=== PATIENT | female | born 1960 | race Caucasian/White ===

== ENCOUNTER 2017-10-11 16:48 | Emergency (ER) | payer MEDICARE, OTHER ==
[~2017-10-11] VITALS: Ht 162.6 cm; Wt 108.9 kg
[2017-10-11 16:55] VITALS: BP 121/80
--- NOTE | 2017-10-11 17:03 | PHYS DOC ---
Adult General Chief Complaint Chief Complaint: LACERATION/AVULSION [facility] HPI Patient is a 57 year old female presents to the emergency department stating that she cut her right index finger with a mandolin today. She presents here to the emergency department tumefaction cannot get the bleeding to stop. Patient states her tetanus immunization was on 09/10/12. Patient does have good sensation noted to the fingertip area. Bleeding at this time is not currently controlled however bandages placed over the site. Patient is right hand dominant. Review of Systems Review of Systems Constitutional: Denies fever or chills [] Eyes: Denies change in visual acuity, redness, or eye pain [] HENT: Denies nasal congestion or sore throat [] Respiratory: Denies cough or shortness of breath [] Cardiovascular: No additional information not addressed in HPI [] GI: Denies abdominal pain, nausea, vomiting, bloody stools or diarrhea [] : Denies dysuria or hematuria [] Musculoskeletal: Denies back pain or joint pain [] Integument: Denies rash or skin lesions. Laceration to the tip of the right index finger Neurologic: Denies headache, focal weakness or sensory changes [] Endocrine: Denies polyuria or polydipsia [] All other systems were reviewed and found to be within normal limits, except as documented in this note. Current Medications Current Medications Current Medications Medications (Trade) Dose Ordered Sig/Rachelle Start Time Stop Time Status Last Admin Dose Admin Diphtheria/ Tetanus/Acell Pertussis (Boostrix) 0.5 ml ONCE ONCE 10/11/17 17:30 10/11/17 17:31 Gelatin (Gelfoam Size 12-7mm) 1 each 1X ONCE 10/11/17 17:30 10/11/17 17:31 Allergies Allergies Allergies Coded Allergies Type Severity Reaction Last Updated Verified Sulfa (Sulfonamide Antibiotics) Allergy Unknown 10/11/17 Yes Physical Exam Physical Exam Constitutional: Well developed, well nourished, no acute distress, non-toxic appearance. [] HENT: Normocephalic, atraumatic, bilateral external ears normal, oropharynx moist, no oral exudates, nose normal. [] Eyes: PERRLA, EOMI, conjunctiva normal, no discharge. [] Neck: Normal range of motion, no tenderness, supple, no stridor. [] Cardiovascular:Heart rate regular rhythm Lungs & Thorax: No respiratory distress noted Skin: Warm, dry, no erythema, no rash. Patient was noted to have an avulsion of the tip of the right index finger. Patient does have an ice pack and pressure applied to the area due to bleeding. She has full range of motion of the finger. No nail involvement noted. Extremities: No tenderness, no cyanosis, no clubbing, ROM intact, no edema. [] Neurologic: Alert and oriented X 3, normal motor function, normal sensory function, no focal deficits noted. [] Psychologic: Affect normal, judgement normal, mood normal. [] EKG EKG [] Radiology/Procedures Radiology/Procedures [] Course & Med Decision Making Course & Med Decision Making Pertinent Labs and Imaging studies reviewed. (See chart for details) Site will be cleaned with saline and Hibiclens. Patient will be provided with a tetanus immunization here in the emergency department. Gelfoam will be placed on the finger tip to help with bleeding. Patient was recommended to keep this on for the next 24 hours. Recommended that she soak the Gelfoam off to prevent bleeding from occurring. Patient was provided with signs and symptoms of infection. Recommended keeping the area clean and dry applying antibiotic ointment after the 24 hours. I've spoken with the patient and/or caregivers. I've explained the patient's condition, diagnosis and treatment plan based on information available to me at this time. I've answered the patient's and/or caregivers questions and addressed any concerns. The patient and/or caregivers have a good understanding the patient's diagnosis, condition and treatment plan as can be expected at this point. Vital signs have been stabilized. The patient's condition is stable for discharge from the emergency department. The patient will pursue further outpatient evaluation with her primary care provider or other designated consulting physician as outlined in the discharge instructions. Patient and/or caregivers are agreeable to this plan of care and follow-up instructions have been explained in detail. The patient and/or caregivers have received these instructions in written format and expressed understanding of these discharge instructions. The patient and her caregivers are aware that if any significant change in condition or worsening of symptoms should prompt him to immediately return to this of the closest emergency department. If an emergent department is not readily available I would encourage him to call 911. Derik Disclaimer Derik Disclaimer This electronic medical record was generated, in whole or in part, using a voice recognition dictation system. Departure Departure Impression: Primary Impression: Avulsion, finger tip Disposition: 01 HOME, SELF-CARE Condition: STABLE Referrals: ISIDRO HELTON Jr, MD (PCP) Patient Instructions: Finger Avulsion Additional Instructions: Activity as tolerated Keep the finger clean and dry for the next 24 hours Tomorrow night soak the finger in water to remove the gel foam, Do NOT pull the gel foam off as this may cause bleeding Clean with soap and water and apply antibiotic ointment to the site Then clean the finger twice a day with soap and water Watch for signs and symptoms of infection: redness, warmth, tenderness or any green/yellow drainage that may occur. If this should happen followup with your primary care provider immediately Followup with your primary care provider in 1 week Return to emergency department as needed for signs and symptoms that become worse. Problem Qualifiers Primary Impression: Avulsion, finger tip Encounter type: initial encounter Qualified Codes: S61.209A - Unspecified open wound of unspecified finger without damage to nail, initial encounter ABRAN SANABRIA APRN Oct 11, 2017 17:03
[2017-10-11] MEDS ORDERED: GELATIN SPONGE SIZE 12-7MM SPONGE. TP ONE (17:30)
[2017-10-11] MEDS ORDERED: DIPHTH,PERTUSS(ACELL),TET TOX 0.5 ML DISP.SYRIN. VAX IM ONE (17:30)
== END 2017-10-11 17:45 | disposition home or self-care (01) ==
LOC: ER 16:48
DX: S61.210A Laceration without foreign body of right index finger without damage to nail, initial encounter (principal); Z88.2 Allergy status to sulfonamides; W26.8XXA Contact with other sharp object(s), not elsewhere classified, initial encounter; Y93.89 Activity, other specified; Y99.8 Other external cause status; Y92.89 Other specified places as the place of occurrence of the external cause
CPT/HCPCS: 90471; 90715; 99284-25

== ENCOUNTER → 2018-05-18 | Outpatient (CLI) | payer OTHER, MEDICARE | END | disposition home or self-care (01) | LOC: KCIC CT 08:13 | DX: N20.0 Calculus of kidney (principal); K42.9 Umbilical hernia without obstruction or gangrene; Z98.890 Other specified postprocedural states | CPT/HCPCS: 74176 ==

== ENCOUNTER → 2018-06-01 | Outpatient (CLI) | payer OTHER, MEDICARE | END | disposition home or self-care (01) | LOC: KCIC 10:27 | DX: M25.551 Pain in right hip (principal) | CPT/HCPCS: 73502 ==

== ENCOUNTER → 2019-02-07 | Outpatient (CLI) | payer OTHER, MEDICARE ==
[~2019-02-07] MED LIST: ACET500T68 PO; BACL10TA PO; CALC1TAB79 PO; CHOL10003 PO; CLON0.5T11 PO; CYAN250012 PO; DOCU-150 PO; DULO60CA6 PO; ESTR1TAB15 PO; GABA600T7 PO; HYDR-2145 PO; HYDR-2763 PO; IBUP-1027 PO; LOSA-73 PO; NADO40TA PO; OXYB5TAB7 PO; PREN-2 PO; QUET100T4 PO; [UNRECOGNIZED DRUG - CODE] SQ
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
== END | disposition home or self-care (01) ==
LOC: PNCL 09:55
PROVIDERS: ATTEND Anesthesiology
DX: M79.601 Pain in right arm (principal); M54.2 Cervicalgia; I10 Essential (primary) hypertension; M19.90 Unspecified osteoarthritis, unspecified site; Z88.2 Allergy status to sulfonamides; Z87.891 Personal history of nicotine dependence
CPT/HCPCS: G0463

== ENCOUNTER → 2019-02-21 | Outpatient (CLI) | payer OTHER, MEDICARE ==
[~2019-02-21] MED LIST changes: +IOHEXOL 180 MG/ML 10 ML VIAL. ONE; +methylPREDNISolone ACETATE 40 MG/ML VIAL. ONE; +methylPREDNISolone ACETATE 80 MG/ML VIAL. ONE
--- NOTE | 2019-02-21 22:00 | PAIN ---
DATE OF SERVICE: 02/21/2019 DIAGNOSES: 1. Cervical radiculopathy with cervical degenerative disk disease. 2. Post-cervical laminectomy syndrome. HISTORY OF PRESENT ILLNESS: The patient is a 58-year-old female who returns for followup status post initial evaluation and preauthorization for a cervical epidural steroid injection. She still has significant pain in the base of the neck and shoulders, upper extremities, right greater than left. The patient reports still significant pain even after Medrol Dosepak, which did help while she was taking it for about the first week. The patient reports still has pain in the base of the neck and shoulders, again in the right upper arm into the anterior aspect of the biceps and the anterior forearm as well as posterior forearm with some numbness and tingling in the right hand. The patient reports no new motor or sensory deficits, no new changes, still difficulty sleeping when she lies on the right side, using repetitive motions, reaching over her head with her right arm as well. The patient reports the pain is burning and stabbing, sharp, dull, shooting, radiating, becoming more constant, more severe as time goes on in the neck and right arm. The patient reports it is 10 on a scale of 10 at its worst, 7 on average, 4 at its least and is 7 today. PHYSICAL EXAMINATION: VITAL SIGNS: The patient's blood pressure is 144/99, pulse 59, respirations 16, temperature 97.7 degrees Fahrenheit, weight is 260 pounds. GENERAL: The patient is awake, alert, oriented, appropriate, very pleasant demeanor. HEENT: Shows normocephalic, atraumatic. Extraocular movements are intact and symmetrical. Oral cavity: Mucous membranes moist and pink. Dentition is intact. NECK: Shows anterior throat supple without palpable lymphadenopathy noted. Swallow reflex symmetrical. CHEST: Shows normal on inspection. Breath sounds clear to auscultation bilaterally. HEART: Shows S1, S2 clear. No murmurs auscultated. ABDOMEN: Soft, nontender, nondistended. No palpable organomegaly is noted. No rebound or guarding demonstrated. BACK: Shows spine grossly in the midline, normal-appearing cervical lordotic curvature and thoracic kyphotic curvature. Cervical paraspinous muscle shows symmetrical on inspection, with palpation shows some moderate tenderness diffusely in the inferior aspect compared to the posterior cervical paraspinous musculature without radiation. No trigger points. No difficulty with rotational motion, good extension, flexion and good right and left lateral rotation greater than 45 degrees without significant increase in pain. EXTREMITIES: The patient's upper extremities show deep tendon reflexes 2+ in the biceps and triceps tendons. Motor exam is 4 on a scale of 5 on the right with receiver bulk system strength and 5/5 on the left. Peripheral pulses are 2+ in radial distribution. No peripheral edema is noted bilaterally. Options were discussed with the patient. The patient's old chart was reviewed as her current medication regimen updated. Current review of systems updated today as well. We will proceed with a cervical epidural steroid injection with risks discussed today including, but not limited to bleeding, infection, possibility of epidural hematoma, subsequent neurological compromise, dural puncture, headaches, spinal cord and/or nerve damage, side effects of steroid medication and poor results regarding pain control. The patient understands and wished to proceed. The patient to return to clinic in approximately 2 weeks for followup, was counseled on return appointment, activity level and side effects to be aware of. The patient also continues with medication management with hydrocodone, ibuprofen, and baclofen and she is obtaining these from her primary care physician and feels this is appropriate and necessary for her to have at this time. She will continue on this medication regimen as prescribed with her primary physician. DIAGNOSES: Cervical radiculopathy with cervical degenerative disk disease and cervical post-laminectomy syndrome. PROCEDURE: Cervical epidural steroid injection, translaminar approach C6-C7 level using C-arm fluoroscopic guidance under sterile prep and drape using local anesthetic. MEDICATION INJECTED: A total of 120 mg Depo-Medrol plus 5 mL of preservative-free normal saline and 2 mL of Omnipaque for contrast. CONDITION AT DISCHARGE: Stable. The patient tolerated the procedure well, had no complications. DAMION DOE MD DR: ISIDRO/abdiel JOB#: [id number] / [id number] CECILIA Silva MD, Hanson MD
== END | disposition home or self-care (01) ==
LOC: PNCL 14:33
PROVIDERS: ATTEND Anesthesiology
DX: M50.123 Cervical disc disorder at C6-C7 level with radiculopathy (principal); M96.1 Postlaminectomy syndrome, not elsewhere classified; Z88.2 Allergy status to sulfonamides
CPT/HCPCS: 62321; J1030; J1040; Q9965

== ENCOUNTER → 2019-03-18 | Outpatient (CLI) | payer OTHER, MEDICARE ==
[~2019-03-18] MED LIST changes: -IOHEXOL 180 MG/ML 10 ML VIAL. ONE; -methylPREDNISolone ACETATE 40 MG/ML VIAL. ONE; -methylPREDNISolone ACETATE 80 MG/ML VIAL. ONE
--- NOTE | 2019-03-19 03:44 | PAIN ---
DATE OF SERVICE: 03/18/2019 PROGRESS NOTE FOR PAIN CLINIC: DIAGNOSES: Cervical radiculopathy with cervical degenerative disk disease and post-cervical laminectomy syndrome. HISTORY OF PRESENT ILLNESS: The patient is a 58-year-old female who returns for followup status post cervical epidural steroid injection x 1. The patient reports significant reduction in pain for the first 2 weeks about 75%, but now is about 50% overall. The pain is returning fairly significantly. The patient relates that she was in a car yesterday, looked over her right shoulder to check a blind spot and had significant pain shooting into the right shoulder and arm as it was previously, but only for a quick time, but the pain is still fairly noticeable even this morning. The patient reports no new motor or sensory deficits, no new changes, but still significant pain in the right upper extremity, right neck, shooting into the right anterior deltoid, anterior biceps as well. The patient reports it is sharp, burning, stabbing, going to the right arm with occasional tingling sensation, but no weakness. She has not been dropping any items nor had any increased weakness of the right hand. The patient reports her neck overall feels better and she is pleased with her progress, but again the pain returning fairly significantly with a radiating quality into the right arm and shoulder as well as previously. The patient reports it is awakening her from sleep again over the last few days. Does not cause any loss of function noted again, but still becoming more noticeable as time goes on. The patient reports no new motor or sensory deficit. Reports the pain is sharp, tingling, burning and stabbing, rates it 8 on a scale of 10 at its worst, 7 on average, 6 at its least and is a 7 today. PHYSICAL EXAMINATION: VITAL SIGNS: The patient's blood pressure 129/85, pulse 62, respirations 16, temperature is 98.9 degrees Fahrenheit, weight is 269 pounds. GENERAL: The patient is awake, alert, oriented, appropriate, very pleasant demeanor. HEENT: Shows normocephalic, atraumatic. Extraocular movements are intact and symmetrical. Oral cavity: Mucous membranes moist and pink. Dentition is intact. NECK: Shows anterior throat supple without palpable lymphadenopathy noted. Swallow reflex symmetrical. CHEST: Shows normal with inspection. Breath sounds clear to auscultation bilaterally. HEART: Shows S1, S2 clear. No murmurs auscultated. ABDOMEN: Soft, nontender, nondistended. No palpable organomegaly is noted. No rebound or guarding demonstrated. BACK: Shows spine grossly in the midline. Normal appearing thoracic kyphosis and lumbar lordotic curvature. Cervical paraspinous muscle shows symmetrical on inspection, with palpation shows some moderate tenderness, more on the right than the left inferior aspect of the cervical paraspinous muscles and into the superior medial trapezius as well, but without radiation, without trigger points. The patient has good rotational motion, slightly guarded and slow with movement to rotation past 45 degrees right and left as well as full extension, full forward flexion without increase in pain. EXTREMITIES: Upper extremities show deep tendon reflexes 2+ in the biceps, triceps tendons. Motor exam is approximately 4 on a scale of 5 with right wire drawing die maker strength, bicep and tricep flexion, 5/5 on the left. Peripheral pulses are 2+ radial distribution. No peripheral edema is noted bilaterally. Options were discussed with the patient. The patient's old chart was reviewed as her current medication regimen updated. Current review of systems updated today as well. We will preauthorize the patient for a second cervical epidural steroid injections, she did very well initially the first few weeks after the first injection, pain returning now to about 50% level in the base of the neck and right upper extremity is noted in a radicular fashion, mostly at C5-C6 dermatomal distribution. The patient would like to proceed with a second injection. We will plan a translaminar cervical epidural steroid injection at C5-C6 level. The patient will continue doing stretching and strengthening exercise in the meantime and will follow up in approximately 2 weeks and plan on second cervical epidural steroid injection at that time. DAMION DOE MD DR: ISIDRO/abdiel JOB#: [id number] / [id number]
== END | disposition home or self-care (01) ==
LOC: PNCL 09:00
PROVIDERS: ATTEND Anesthesiology
DX: M50.10 Cervical disc disorder with radiculopathy, unspecified cervical region (principal); M96.1 Postlaminectomy syndrome, not elsewhere classified
CPT/HCPCS: G0463

== ENCOUNTER → 2019-03-31 | Outpatient (CLI) | payer OTHER, MEDICARE ==
[~2019-03-31] MED LIST changes: +IOHEXOL 180 MG/ML 10 ML VIAL. ONE; +methylPREDNISolone ACETATE 40 MG/ML VIAL. ONE; +methylPREDNISolone ACETATE 80 MG/ML VIAL. ONE
--- NOTE | 2019-04-01 00:17 | PAIN ---
DATE OF SERVICE: 03/31/2019 DIAGNOSES: Cervical radiculopathy with cervical degenerative disk disease and post-cervical laminectomy syndrome. HISTORY OF PRESENT ILLNESS: The patient is a 59-year-old female who returns for followup status post cervical epidural steroid injection x 1 with about 75% improvement. The patient reports the pain is returning now in the base of the neck and bilateral upper extremities, slightly more on the right than the left, but present bilaterally. The patient reports it is a 10 on a scale of 10 at its worst, 8 on average, is a 6 at its least and is a 6 today. The patient reports it is stabbing, aching, sharp, shooting, radiating, severe at times, worse with activity, reading but holding her head upward down, better with sitting or lying down, better with sleeping, does not awaken her from sleep. The patient reports no new motor or sensory deficits. No new changes. PHYSICAL EXAMINATION: VITAL SIGNS: The patient's blood pressure is 135/40, pulse is 52, respirations 18, temperature 98.1 degrees Fahrenheit, height is 5 feet 5 inches, weight is 269 pounds. GENERAL: The patient is awake, alert, oriented, appropriate, very pleasant demeanor. HEENT: Shows normocephalic, atraumatic. Extraocular movements are intact and symmetrical. Oral cavity: Mucous membranes moist and pink. Dentition is intact. NECK: Shows anterior throat supple without palpable lymphadenopathy noted. Swallow reflex is symmetrical. CHEST: Shows normal on inspection. Breath sounds are clear to auscultation bilaterally. HEART: Shows S1, S2 clear. No murmurs auscultated. ABDOMEN: Soft, nontender, nondistended. No palpable organomegaly is noted. No rebound or guarding demonstrated. BACK: Shows spine grossly in the midline. Cervical lordotic curvature is maintained. Cervical paraspinous muscle shows symmetrical on inspection. On palpation shows some moderate tenderness diffusely bilaterally, but only diffusely without significant radiation. The patient has good rotational motion of cervical spine, both laterally with some minor tenderness with extension, but not with forward flexion, right or left lateral rotations performed past 45 degrees, closer to 90 degrees without significant pain reported. EXTREMITIES: The patient's upper extremities show deep tendon reflexes at 2+ in the biceps and triceps tendons. Motor exam is approximately 4 on a scale of 5 with right malware analyst strength and 5 out of 5 on the left. Peripheral pulses are 2+ radial distribution. No peripheral edema is noted bilaterally. Options were discussed with the patient. The patient's old chart was reviewed as was her current medication regimen updated. Current review of systems is updated today as well and we will proceed with a second in the series of cervical epidural steroid injection today with fluoroscopic guidance. Risks were again discussed including, but not limited to bleeding, infection, possibility of epidural hematoma, subsequent neurologic compromise, dural puncture, headaches, spinal cord and/or nerve damage, side effects of steroid medication and poor results regarding pain control. The patient understands and wished to proceed. The patient will return to the clinic in approximately 2 weeks for followup, was counseled on return appointment, activity level and side effects to be aware of. DIAGNOSES: Cervical radiculopathy with cervical degenerative disk disease and post-cervical laminectomy syndrome. PROCEDURE: Cervical epidural steroid injection, translaminar approach, C6-C7 level using C-arm fluoroscopic guidance under sterile prep and drape using local anesthetic. MEDICATION INJECTED: A total of 120 mg Depo-Medrol plus 5 mL of preservative-free normal saline and 2 mL of Isovue for contrast. CONDITION AT DISCHARGE: Stable. The patient tolerated the procedure well, had no complications. DAMION DOE MD DR: ISIDRO/abdiel JOB#: [id number] / [id number]
== END | disposition home or self-care (01) ==
LOC: PNCL 08:21
PROVIDERS: ATTEND Anesthesiology
DX: M50.123 Cervical disc disorder at C6-C7 level with radiculopathy (principal); M96.1 Postlaminectomy syndrome, not elsewhere classified; Z88.2 Allergy status to sulfonamides
CPT/HCPCS: 62321; J1030; J1040; Q9965

== ENCOUNTER → 2019-04-26 | Outpatient (CLI) | payer OTHER, MEDICARE ==
[~2019-04-26] MED LIST changes: -IOHEXOL 180 MG/ML 10 ML VIAL. ONE; -methylPREDNISolone ACETATE 40 MG/ML VIAL. ONE; -methylPREDNISolone ACETATE 80 MG/ML VIAL. ONE
--- NOTE | 2019-04-26 17:32 | KCIC ---
BILATERAL SCREENING MAMMOGRAM, 3-D History: Routine screening. Comparison: Bilateral mammogram December 11, 2015. Technique: MLO and CC digital tomosynthesis (3D) images obtained. Radiologist reviewed these images on dedicated workstation. Findings: Breast Tissue Density B : There are scattered areas of fibroglandular density. A few benign calcifications are noted bilaterally. Bilateral glandular nodularity is redemonstrated. There are no dominant masses, suspicious microcalcifications, or architectural distortion. IMPRESSION: No mammographic evidence of malignancy. Recommend routine screening. BI-RADS category 2: Benign findings. The images were reviewed with computer-aided detection. Patient information is entered into reminder system with a target due date for the next screening mammogram. Mammography is the most sensitive method for finding small breast cancers, but it does not detect them all and is not a substitute for careful clinical examination. A negative mammogram does not negate a clinically suspicious finding and should not result in delay in biopsying a clinically suspicious abnormality. "Our facility is accredited by the [employer] Mammography Program." Electronically signed by: Sarthak Nation MD (04/26/2019 5:29 PM) [facility]
== END | disposition home or self-care (01) ==
LOC: KCIC MAMMO 10:25
PROVIDERS: ATTEND Family Medicine
DX: Z12.31 Encounter for screening mammogram for malignant neoplasm of breast (principal); N64.89 Other specified disorders of breast
CPT/HCPCS: 77063; 77067

== ENCOUNTER → 2019-06-03 | Outpatient (CLI) | payer OTHER, MEDICARE | END | disposition home or self-care (01) | LOC: SURGPAT 12:22 | PROVIDERS: ATTEND Neurological Surgery | DX: Z01.818 Encounter for other preprocedural examination (principal); M48.02 Spinal stenosis, cervical region; M50.122 Cervical disc disorder at C5-C6 level with radiculopathy; Z88.2 Allergy status to sulfonamides | CPT/HCPCS: 36415; 87641 ==

== ENCOUNTER 2019-06-10 07:19 | Observation (INO) | payer OTHER, MEDICARE ==
--- NOTE | 2019-06-09 16:07 | PREOP HP ---
DATE OF SERVICE: 06/10/2019 Tripp Wilcox dictating for Dr. Kunal Ivey. DATE OF SURGERY: 06/10/2019. HISTORY OF PRESENT ILLNESS: The patient is a pleasant 59-year-old who is having difficulty with neck and bilateral shoulder pain. She describes the pain as sharp, stabbing pain. She says her left shoulder is more sharply painful, but that the right shoulder feels weak and she has pain in the right scapular area. The problem started 4-6 months ago spontaneously. She rates her pain as a 7/10. Looking down increases her pain. Sitting straight helps her. She takes Lortab for pain. She had physical therapy and said that made the pain worse. Epidural steroid injections were done without significant long-term benefit. In 2012, she underwent ACDF and did well. PAST MEDICAL HISTORY: Arthritis. Artificial joint, blood clots, blood transfusion. Headaches and migraines, head or neck injury, kidney stones, tonsillitis, fibromyalgia ____. PAST SURGICAL HISTORY: Right knee replacement in 2007, left knee replacement in 2009, cholecystectomy in 2006, ACDF 2012. FAMILY HISTORY: Aneurysm, cancer, diabetes, heart problems and disease, hypertension. SOCIAL HISTORY: Quit smoking more than 10 years ago. Minimal alcohol consumption. ALLERGIES: SULFA. CURRENT MEDICATIONS: Baclofen, clonazepam. Lortab, oxybutynin chloride. Corgard, gabapentin, calcium, vitamin D, laxative, vitamin, Tylenol, Quetiapine fumarate, duloxetine, losartan. REVIEW OF SYSTEMS: A 12-point review of systems was obtained and is noncontributory except that mentioned above. PHYSICAL EXAMINATION: NEUROSURGERY EXAMINATION: GENERAL APPEARANCE: Alert, pleasant, no distress. HEAD: Normocephalic and atraumatic. SKIN: Warm and dry. NECK AND THYROID: [id number]-vc-rshuzscn tenderness with palpation of posterior cervical region, tenderness along the right superior medial scapular region, well-healed incision. MUSCULOSKELETAL: Cervical paraspinal muscle bulk is normal, cervical range of motion is restricted, normal range of motion of the upper extremities bilaterally. EXTREMITIES: No clubbing, cyanosis or edema. NEUROLOGIC: Alert and oriented x 3, normal recent and remote memory, strength 5/5 in bilateral upper and lower extremities, except for 4+/5 right triceps strength. Sensory was intact to light touch in the upper and lower extremities. Reflexes were present and symmetric in the upper and lower extremities bilaterally, normal gait. IMAGING: I reviewed her cervical MRI scan from 01/17/2019. On that study, the principal abnormality was at C5-C6 with a right paracentral disk osteophyte complex with marked narrowing of the right neural foramen along with the element of stenosis in the right side of the spinal canal. ASSESSMENT: 1. Cervical disk disorder at C5-C6 level with radiculopathy. 2. Cervicalgia. 3. Spinal stenosis, cervical region. PLAN: The patient has a cervical radiculopathy. She has failed to improve with conservative measures. She has severe right-sided neural foraminal narrowing at C5-C6. She is going to require surgery at that level and that she has failed extensive conservative measures. This will require removal of hardware at C5 related to a previous ACDF and diskectomy and fusion at C5-C6 with anterior plating. I discussed this with her in detail. She would like to go ahead and make the arrangements. I carefully outlined the risks of the surgery and the sequelae of injury to soft tissue structures of the neck. We also spoke about expected postoperative course. She has excellent understanding and would like to proceed. We will make the arrangements. KUNAL IVEY MD DR: NIKA/abdiel JOB#: [id number] / [id number]
[~2019-06-10] VITALS: Ht 165.1 cm; Wt 117.0 kg
[2019-06-10] VITALS (10 sets, daily range): BP systolic 94–134; BP diastolic 55–77
[~2019-06-10 07:19] MED LIST changes: +BACITRACIN 50,000 UNIT in IV NORMAL SALINE 1000ML BAG 1,000 ML IRR ONE; +BUPIVAC MPF-EPI 0.5%-1:200000 30 ML VIAL. ONE; +GELATIN SPONGE SIZE 12-7MM SPONGE. ONE; +THROMBIN TOPICAL 20,000 UNIT SPRAY.SYRN KIT TP ONE; +ceFAZolin 2GM PREMIX 2 GM/50 ML BAG IV ONE
[2019-06-10] MEDS: IV RINGERS,LACTATED 1000ML 1,000 ML IV SCH ×2 (07:53→17:10)
[2019-06-10] MEDS ORDERED: LIDOCAINE 2% PF 5 ML VIAL. ONE (08:23)
[2019-06-10] MEDS ORDERED: PROPOFOL 20 ML IV ONE (08:23)
[2019-06-10] MEDS ORDERED: PROPOFOL 50 ML IV ONE ×2 (08:23→10:08)
[2019-06-10] MEDS ORDERED: ePHEDrine PF IN SALINE 50 MG/10 ML SYRINGE. IV ONE (08:23)
[2019-06-10] MEDS ORDERED: DEXAMETHASONE SOD PHOS 20 MG/5 ML VIAL. ONE (08:23)
[2019-06-10] MEDS ORDERED: PHENYLEPHRINE in 0.9% NACL PF 1 MG/10 ML SYRINGE. IV ONE (08:23)
[2019-06-10] MEDS ORDERED: ONDANSETRON PF 4 MG/2 ML VIAL. ONE (08:23)
[2019-06-10] MEDS ORDERED: SUCCINYLCHOLINE 200 MG/10 ML VIAL. ONE (08:24)
[2019-06-10] MEDS ORDERED: ROCURONIUM 50 MG/5 ML VIAL. ONE (08:24)
[2019-06-10] MEDS ORDERED: fentaNYL PF VIAL 100 MCG/2 ML VIAL ONE ×3 (08:24→11:33)
[2019-06-10] MEDS ORDERED: REMIFENTANIL 2 MG VIAL. IV ONE (08:24)
[2019-06-10] MEDS ORDERED: GLYCOPYRROLATE 1 MG/5 ML VIAL. ONE (09:02)
[2019-06-10] MEDS ORDERED: DESFLURANE > 120 MINUTES IH ONE (09:25)
[2019-06-10] MEDS ORDERED: PHENYLEPHRINE 10 MG/ML VIAL. ONE (09:30)
[2019-06-10] MEDS ORDERED: IV RINGERS,LACTATED 1000ML 1,000 ML IV SCH (10:14)
[2019-06-10] MEDS ORDERED: ONDANSETRON PF 4 MG/2 ML VIAL. IV PRN ×2 (10:15→11:30)
[2019-06-10] MEDS ORDERED: HYDROmorphone 2 MG/ML VIAL IV PRN (10:15)
[2019-06-10] MEDS ORDERED: PROCHLORPERAZINE 10 MG/2 ML VIAL. IV PRN (10:15)
[2019-06-10] MEDS ORDERED: LIDOCAINE 1% PF 2 ML VIAL. ID PRN (10:15)
[2019-06-10] MEDS ORDERED: fentaNYL PF VIAL 100 MCG/2 ML VIAL IV PRN ×2 (10:15→11:30)
[2019-06-10] MEDS ORDERED: NEOSTIGMINE METHYLSULFATE 5 MG/5 ML SYRINGE. ONE (10:48)
[2019-06-10] MEDS ORDERED: ACETAMINOPHEN PO PRN (11:15)
[2019-06-10] MEDS: POTASSIUM CL 20MEQ D5-0.45NACL 1,000 ML IV SCH (11:16)
[2019-06-10] MEDS: IV NORMAL SALINE 1000ML BAG 1,000 ML IV SCH (11:16)
[2019-06-10] MEDS ORDERED: ACETAMINOPHEN 325 MG TABLET. PO PRN (11:30)
[2019-06-10] MEDS ORDERED: 0.9 % SODIUM CHLORIDE 10 ML DISP.SYRIN. IV PRN (11:30)
[2019-06-10] MEDS ORDERED: ZOLPIDEM 5 MG TABLET. PO PRN (11:30)
[2019-06-10] MEDS ORDERED: NALOXONE 0.4 MG/ML VIAL. IV PRN ×2 (11:30)
[2019-06-10] MEDS ORDERED: CALCIUM CARBONATE 500 MG TAB.CHEW PO PRN (11:30)
[2019-06-10] MEDS ORDERED: MAGNESIUM HYDROXIDE 2,400 MG/30 ML ORAL.SUSP. PO PRN (11:30)
[2019-06-10] MEDS ORDERED: HYDROcodone/APAP 7.5/325MG 1 TAB TABLET PO PRN (11:30)
[2019-06-10] MEDS ORDERED: diphenhydrAMINE HCL 25 MG CAPSULE PO PRN (11:30)
[2019-06-10] MEDS ORDERED: MAG HYDROX/ALUMINUM HYD/SIMETH 30 ML ORAL.SUSP PO PRN (11:30)
[2019-06-10] MEDS ORDERED: MORPHINE SULFATE 2 MG/ML VIAL. ONE (11:33)
[2019-06-10] MEDS: fentaNYL PF VIAL 100 MCG/2 ML VIAL IV PRN ×2 (11:36→11:53)
[2019-06-10] MEDS: MORPHINE SULFATE 2 MG/ML VIAL. IV PRN ×2 (11:42→11:57)
[2019-06-10] MEDS ORDERED: PROCHLORPERAZINE 10 MG/2 ML VIAL. ONE (11:48)
[2019-06-10] MEDS ORDERED: CYANOCOBALAMIN (VITAMIN B-12) 1,000 MCG TABLET. PO SCH (13:00)
[2019-06-10] MEDS ORDERED: ceFAZolin SODIUM 1 GM in IV DEXTROSE 5% 50 ML IV SCH (14:00)
[2019-06-10] MEDS: GABAPENTIN 300 MG CAPSULE. PO SCH ×3 (14:03→20:12)
[2019-06-10] MEDS: BACLOFEN 10 MG TABLET. PO SCH ×3 (14:03→20:15)
--- NOTE | 2019-06-10 14:24 | DISCH ---
DISCHARGE INSTRUCTIONS Condition on Discharge Condition on Discharge: Stable Activity After Discharge Activity Instructions for Disc: Avoid exertion Bathing Instructions: Shower-keep dressing dry Lifting Instructions after Dis: No heavy lifting, No pulling or pushing, Do not lift >10 pounds Driving Instructions after Dis: No driving for 2 weeks Diet after Discharge Additional Diet Restrictions: resume home diet Wound Incision Care Wound/Incision Care: Ice to area for comfort Other wound/incision instructi: may remove dressing in 48 hours if dry then may shower Contacting the DRBea after DC Call your doctor for: Concerns you may have Follow-Up Follow up with: Dr. Ivey's nurse in 2 weeks [phone] LULI IVEY MD Jun 10, 2019 14:24
[2019-06-10] MEDS: CALCIUM CARB/VIT D3 500/200 TABLET. PO SCH (17:07)
[2019-06-10] MEDS: ceFAZolin SODIUM IV Push 1 GM VIAL. IVP SCH (17:08)
[2019-06-10] MEDS: HYDROcodone/APAP 7.5/325MG 1 TAB TABLET PO PRN (20:10)
[2019-06-10] MEDS: clonazePAM 0.5 MG TABLET PO SCH (20:11)
[2019-06-10] MEDS: METOPROLOL TART IMMED RELEASE 50 MG TABLET. PO SCH (20:14)
[2019-06-10] MEDS: DOCUSATE SODIUM 100 MG CAPSULE. PO SCH (20:15)
[2019-06-10] MEDS: OXYBUTYNIN CHLORIDE 5 MG TABLET PO SCH (20:15)
[2019-06-10] MEDS ORDERED: DOCUSATE SODIUM 100 MG CAPSULE. PO SCH (21:00)
[2019-06-10] MEDS ORDERED: QUEtiapine 100 MG TABLET. PO SCH (21:00)
[2019-06-11] MEDS: POTASSIUM CL 20MEQ D5-0.45NACL 1,000 ML IV SCH (00:36)
--- NOTE | 2019-06-11 01:24 | NUR ---
IVF non-administered. Pt. tolerating PO well.
[2019-06-11] MEDS: ceFAZolin SODIUM IV Push 1 GM VIAL. IVP SCH ×2 (01:47→08:51)
[2019-06-11] MEDS: HYDROcodone/APAP 7.5/325MG 1 TAB TABLET PO PRN ×2 (01:47→08:44)
[2019-06-11 03:30] VITALS: BP 109/57
[2019-06-11] MEDS: IV RINGERS,LACTATED 1000ML 1,000 ML IV SCH (04:00)
[2019-06-11 07:00] VITALS: BP 124/61
[2019-06-11] MEDS: GABAPENTIN 300 MG CAPSULE. PO SCH (08:44)
[2019-06-11] MEDS: CALCIUM CARB/VIT D3 500/200 TABLET. PO SCH (08:44)
[2019-06-11] MEDS: METOPROLOL TART IMMED RELEASE 50 MG TABLET. PO SCH (08:44)
[2019-06-11] MEDS: BACLOFEN 10 MG TABLET. PO SCH (08:44)
[2019-06-11 08:45] VITALS: BP 124/61
[2019-06-11] MEDS: clonazePAM 0.5 MG TABLET PO SCH (08:45)
[2019-06-11] MEDS: OXYBUTYNIN CHLORIDE 5 MG TABLET PO SCH (08:45)
[2019-06-11] MEDS: DOCUSATE SODIUM 100 MG CAPSULE. PO SCH (08:45)
[2019-06-11] MEDS ORDERED: LOSARTAN POTASSIUM 50 MG TABLET. PO SCH (09:00)
[2019-06-11] MEDS ORDERED: CHOLECALCIFEROL (VITAMIN D3) 1,000 UNIT TABLET PO SCH (09:00)
[2019-06-11] MEDS ORDERED: MULTIVITAMIN with MINERAL TABLET. PO SCH (09:00)
[2019-06-11] MEDS ORDERED: DULoxetine HCL 30 MG CAPSULE.DR PO SCH (09:00)
[2019-06-11] MEDS ORDERED: hydroCHLOROthiazide 25 MG TABLET PO SCH (09:00)
[2019-06-11] MEDS: IV NORMAL SALINE 1000ML BAG 1,000 ML IV SCH (11:16)
--- NOTE | 2019-06-11 12:12 | NUR ---
pt. discharged to home with Rx, verified understanding of discharge instruction. Ant. neck dressing CDI, soft collar in place.
--- NOTE | 2019-06-13 18:06 | PATHOLOGY ---
[facility] Accession Number: [id number] . 01 Material submitted: . vertebral column - CERVICAL DISC . 01 Clinical history: . Cervical stenosis, cervicalgia, herniated disc . 02 Diagnosis: Segments of fibrocartilaginous tissue and bone, cervical disc: - Degenerative changes of fibrocartilaginous tissue. (JPM:alcides; 06/13/2019) QMS/06/13/2019 . 02 Comment: There is no evidence of an acute inflammatory process or malignancy. (JPM:alcides; 06/13/2019) . 02 Electronically signed: . Marcos Yuen MD, Pathologist NPI- [id number] . 01 Gross description: . Received in formalin labeled "Vishnu, Sharmaine, cervical disc," are several pieces of glistening, fibrous tissue measuring 1.5 x 1.3 x 0.5 cm in aggregate dimensions, containing small fragments of possible bone. The tissue is filtered and submitted entirely in cassette A1. (TSD; 06/10/2019) TOB/TOB . 02 Pathologist provided ICD-10: M50.30 . 02 CPT . 763470 Specimen Comment: A courtesy copy of this report has been sent to Specimen Comment: [phone], . Specimen Comment: Report sent to / DR LESLIE Performed at: 01 [facility] [address], [place] [id number] MD Leighton Sarabia MD Phone: [phone] Performed at: 02 [facility] [address], [place] [id number] MD Marcos Yuen MD Phone: [phone]
--- NOTE | 2019-06-15 10:29 | OP ---
DATE OF SURGERY: 06/10/2019 PREOPERATIVE DIAGNOSES: Previous cervical surgery with instrumented fusion at C4-C5, adjacent segment degenerative change with disk osteophyte complex formation and foraminal narrowing with radiculopathy at C5-C6. OPERATIONS PERFORMED: Anterior cervical microdiskectomy at C5-C6; anterior cervical interbody fusion at C5-C6 with allograft and autograft bone, and anterior cervical plate at C5-C6. The operation was done with EMG monitoring, SSEP monitoring, motor evoked potentials, NIMS monitoring, fluoroscopy, and microscopic dissection. MATERIAL ANALYST: CAMERON Montero assisted with the surgery. She assisted with the decompression and instrumented fusion. OPERATIVE INDICATIONS: The patient is a pleasant 59-year-old who developed intractable neck and bilateral shoulder and arm pain. On imaging studies, she has significant degenerative changes the level below her previous fusion at C4-C5 and these problems at C5-C6 were associated with disk osteophyte complex and foraminal narrowing and I recommended an ACDF at this level. She understood the surgery, the risks, technique, and expected postoperative course and wished to go ahead. DESCRIPTION OF PROCEDURE: Following general endotracheal anesthesia, the patient was positioned supine on the operating room table in a neutral position. The anterior cervical region was then prepped and draped in standard fashion. ROBBY hose and A-V impulse boots were applied for DVT prophylaxis. A microscope was draped. Fluoroscopy was draped and brought in the field. Monitoring was established. Ancef 2 grams was given less than 1 hour prior to initiation of the surgery. Using fluoroscopic guidance, an incision was made from the midline around to the right side in a skin crease. I dissected down the skin and subcutaneous tissue. I dissected around the medial aspect of the sternocleidomastoid and carotid artery sheath down the anterior cervical vertebral bodies, now reflected the trachea and esophagus contralaterally. I exposed the C5-C6 without difficulty and also the inferior aspect of the plate at C4-C5. The plate was far enough superior that I did not have to remove any portion of that plate and placed a new plate at C5-C6. I did place distraction pins in C5 and C6 and brought in the microscope after placing the cervical retractors wedged in the longus colli muscle. I incised the anterior annulus through the microscope using microscopic technique at C5-C6 and performed a diskectomy with pituitary rongeurs. I scraped the cartilaginous endplate. During this time, I brought in the high-speed air drill and drilled the anterior spurring and saved this bone to mix with allograft bone. I also drilled the posterior spurring. I used the 2 mm and 1 mm micro Kerrison's to open posteriorly, widely bilaterally and then prepared the endplates for fusion. I then measured and placed interbody fusion cage, which was packed with allograft and autograft bone after obtaining perfect hemostasis and I opened both foramen. During this time, I also opened the annulus and the ligament and was able to pass a blunt hook out laterally bilaterally without any difficulty. Hemostasis was perfect. I irrigated copiously. I tapped in the interbody fusion cage and then placed an anterior plate using the spinal elements system. Four 14 mm screws were placed and were locked. I irrigated copiously. X-rays looked excellent. I removed the retractors and I assured myself of perfect hemostasis in the muscle and the operative bed and did Valsalva the patient. I then irrigated again, closed the wound with absorbable suture including a layer for the platysma. The skin was closed with a 4-0 subcuticular stitch. The operation went very well and the patient awakened uneventfully and taken to Recovery Room in excellent condition. I was quite pleased with the surgery. LULI IVEY MD DR: NIKA/abdiel JOB#: [id number] / [id number]
[2019-06-24] MEDS ORDERED: [UNRECOGNIZED DRUG - OTHER] SQ SCH (09:00)
== END 2019-06-11 11:59 | disposition home or self-care (01) ==
LOC: SURG 07:19 → 4 NORTH 11:30
PROVIDERS: ADMIT Neurological Surgery; ATTEND Neurological Surgery
DX: M54.10 Radiculopathy, site unspecified (principal); G43.909 Migraine, unspecified, not intractable, without status migrainosus; M79.7 Fibromyalgia; M48.02 Spinal stenosis, cervical region; M19.90 Unspecified osteoarthritis, unspecified site; Z80.9 Family history of malignant neoplasm, unspecified; Z98.1 Arthrodesis status; Z96.653 Presence of artificial knee joint, bilateral; Z83.3 Family history of diabetes mellitus; Z90.49 Acquired absence of other specified parts of digestive tract; Z82.49 Family history of ischemic heart disease and other diseases of the circulatory system; Z87.442 Personal history of urinary calculi
CPT/HCPCS: 20930; 20931; 22554; 22853; 76000; 88304; 88311; 96374; 96375; 96376; A7015; C1713; G0378; G0379; J0171; J0330; J0690; J0696; J0780; J1100; J2001; J2270; J2370; J2405; J2704; J2710; J3010; J3490; J7030

== ENCOUNTER → 2019-08-30 | Outpatient (CLI) | payer OTHER, MEDICARE ==
[~2019-08-30] MED LIST changes: -BACITRACIN 50,000 UNIT in IV NORMAL SALINE 1000ML BAG 1,000 ML IRR ONE; -BUPIVAC MPF-EPI 0.5%-1:200000 30 ML VIAL. ONE; +CLON-77 PO; -CLON0.5T11 PO; -GELATIN SPONGE SIZE 12-7MM SPONGE. ONE; +OXYB5TAB10 PO; -OXYB5TAB7 PO; -THROMBIN TOPICAL 20,000 UNIT SPRAY.SYRN KIT TP ONE; -ceFAZolin 2GM PREMIX 2 GM/50 ML BAG IV ONE
--- NOTE | 2019-08-30 15:15 | KCIC ---
EXAM: Cervical spine, 3 views. HISTORY: Fusion. COMPARISON: None. FINDINGS: 3 views of the cervical spine are obtained. There is instrumented anterior spinal fusion and interbody fusion and C4-C5 and C5-C6. There is degenerative endplate remodeling with disc space narrowing primarily at C6-C7, and to a lesser extent, C3-C4. There is multilevel facet arthropathy. IMPRESSION: 1. Instrumented fusion at C4-C6. 2. Degenerative change primarily at C6-C7, and to a lesser extent, C3-C4. Electronically signed by: Radha Ramírez MD (08/30/2019 3:12 PM) [place] [id number]
== END | disposition home or self-care (01) ==
LOC: KCIC 11:04
PROVIDERS: ATTEND Neurological Surgery
DX: M48.02 Spinal stenosis, cervical region (principal); M12.88 Other specific arthropathies, not elsewhere classified, other specified site; M43.22 Fusion of spine, cervical region
CPT/HCPCS: 72040

== ENCOUNTER → 2021-05-24 | Outpatient (CLI) | payer OTHER, MEDICARE ==
[~2021-05-24] MED LIST changes: -DOCU-150 PO; +DOCU-158 PO; +ESTR-113 PO; -ESTR1TAB15 PO; -NADO40TA PO; +NADO40TA2 PO
--- NOTE | 2021-05-24 09:34 | KCIC ---
Bone Densitometry History: Reason: MENOPAUSAL AND PERIMENOPAUSAL DISORDER, vitamin D deficiency. Findings: Bone Densitometry was performed with dual photon absorption of the lumbar spine and left proximal fem ur. Lumbar Spine: Bone density is 1.119 g/cm2 for L1-L4. T-score is 0.7. Z-score is 2.2. Left total femur: Bone density is 0.955 g/cm2. T-score is 0.1. Z-score is 1.2. IMPRESSION: Bone mineral densities of the lumbar spine and left total femur are normal. World Health Organization definition of osteoporosis and osteopenia for women: normal equal s T score at or above -1.0 standard deviations; osteopenia equals T score between -1.0 and -2.5 stand aileen deviations; osteoporosis equals T score at or below -2.5 standard deviations. Electronically signed by: Sarthak Nation MD (05/24/2021 9:31 AM) [place]
== END ==
LOC: KCIC DEXA 08:46
PROVIDERS: ATTEND Family Medicine
DX: N95.9 Unspecified menopausal and perimenopausal disorder (principal); E55.9 Vitamin D deficiency, unspecified
CPT/HCPCS: 77080